=== PATIENT | female | born 1995 | race Caucasian/White ===

== ENCOUNTER 2025-02-19 12:14 | Emergency (ER) | payer BC, SELFPAY ==
[2025-02-19 12:18] VITALS: BP 148/84
[2025-02-19 12:35] LABS: % Basophils 0.3 % (0-2); % Eosinophils 0.6 % (0-6); % Immature Granulocytes 0.4 % (0-0.5); % Lymphocytes 35.2 % (20.5-51.1); % Monocytes 5.7 % (1.7-9.3); % Neutrophils 57.8 % (42.2-75.2); Absolute Eosinophils 0.1 10^3/uL (0-0.7); Absolute Lymphocytes 3.4 10^3/uL (1.2-3.4); Absolute Monocytes 0.6 10^3/uL (0.1-0.6); Absolute Neutrophils 5.6 10^3/uL (1.4-6.5); Hematocrit 41.3 % (37.0-47.0); Hemoglobin 14.1 g/dL (12.0-16.0); Mean Corp Hgb Conc. 34.1 g/dL (33.0-37.0); Mean Corpuscular Volume 87.9 fL (81.0-99.0); Mean Platelet Volume 8.8 fL (7.4-10.4); Nucleated Red Blood Cells % 0 %; Platelet Count 326 10^3/uL (130-400); Red Cell Dist. Width 12.4 % (11.5-14.5); White Blood Cell Count 9.6 10^3/uL (4.8-10.8)
[2025-02-19 12:49] LABS: ALT (SGPT) 22 U/L (0-35); AST (SGOT) 24 U/L (14-36); Albumin 4.2 g/dl (3.5-5.0); Alkaline Phosphatase 43 U/L (38-126); Blood Urea Nitrogen 16 mg/dl (7-17); Calcium 9.9 mg/dl (8.4-10.2); Carbon Dioxide 24 mmol/L (22-30); Chloride 105 mmol/L (98-107); Glucose 101 mg/dl (70-99); Potassium 4.3 mmol/L (3.5-5.1); Sodium 137 mmol/L (135-145); Total Bilirubin 0.9 mg/dl (0.2-1.3); Total Protein 7.2 g/dl (6.3-8.2); eGFR > 60.00
[2025-02-19 12:59] LABS: Troponin I < 0.012 ng/ml
--- NOTE | 2025-02-19 14:36 | ED.GENMED ---
History of Present Illness
General
Chief Complaint: Chest Pain
Source: patient
Exam Limitations: none
Time Seen by Provider: 02/19/25 14:21
History of Present Illness
History of Present Illness:
29yoF with a family history of coronary artery disease presenting for evaluation of chest pain. Symptoms began around 10:30 AM this morning. She drank a cup of coffee about 30 minutes prior to her symptoms beginning. She developed an intense pain
in the left side of her chest. She also had some discomfort in her left shoulder area. Pain seems to be worse with deep breathing and standing up straight. Pain seems somewhat improved but is still present. She is otherwise asymptomatic and
denies any shortness of breath, dizziness, syncope, nausea, calf pain. She called her rubber stamp die inspector and was told to go to the ED for evaluation. Her father in his early 60s from heart disease and both her grandfather and
great-grandfather were diagnosed with heart disease in their 30s. She takes an oral contraceptive pill.
Phy Exam
General Physical Exam
General Presentation: well appearing and no apparent distress
General age: appears stated age
General Skin: warm and dry
General Habitus: normal
General Mental: alert
ENT Exam
ENT Exam: normocephalic
Cardiovascular Exam
Cardiovascular Exam: regular rate/rhythm, no edema, no murmur and normal peripheral pulses (2+ radial and DP pulses bilaterally)
Pulmonary Exam
Pulmonary Exam: lungs clear, no respiratory distress, no rales, no crackles, no rhonchi and no wheezing
Neurological Exam
Neurological Exam: alert
[place] Coma Scale
Eye Opening: Spontaneous
Verbal Response: Oriented
Motor Response: Obeys Commands
GCS Total Score: 15
Skin Exam
Skin Exam: normal color and warm/dry
Psychiatric Exam
Psychiatric Exam: normal mood/affect
Scores
Heart Score for Chest Pain Patients
STEMI patient?: No
History: Slightly or Non-Suspicious
ECG: Normal
Age: </= 45 years
Risk Factors: 1 or 2 Risk Factors
Troponin: </= Normal Limit
Heart Score for Chest Pain Patients: 1
Heart Score Risk: 2.5% MACE over next 6 weeks
Course
Orders/Labs/Results
Orders:
Orders
02/19/25 12:15
Electrocardiogram (*1) Urgent
Reason for Study: Chest Pain
02/19/25 12:16
EKG- Treatment ONCE
02/19/25 12:25
Complete Blood Count/With Diff Urgent
Comprehensive Metabolic Panel Urgent
HCG, Serum Qualitative Screen Urgent
Comment: ADD ON
Troponin I Urgent
02/19/25 14:35
Electrocardiogram (*1) Urgent
Reason for Study: Chest Pain
Cardiac Monitoring- Treatment ONCE
EKG- Treatment ONCE
02/19/25 14:36
Add On- LAB Urgent
Tests Added?: HCG qual
02/19/25 15:00
D-Dimer Urgent
Troponin I Urgent
02/19/25 15:59
CR Chest - 2 Views Urgent
Comment:
Reason For Exam: CP
Abnormal Lab Results
02/19/25
12:25
Glucose 101 H mg/dl
(70-99)
02/19/25 12:25
02/19/25 12:25
Vital Signs
Initial and Last Documented VS:
Initial Vital Signs
Temp Pulse Resp BP Pulse Ox
98.3 F 70 16 148/84 100
02/19/25 12:18 02/19/25 12:18 02/19/25 12:18 02/19/25 12:18 02/19/25 12:18
Last Documented Vital Signs
Temp Pulse Resp BP Pulse Ox
98.3 F 60 16 115/78 99
02/19/25 12:18 02/19/25 17:45 02/19/25 16:30 02/19/25 17:45 02/19/25 17:45
MDM/Problems Addressed
Differential Diagnosis Includes:
29yoF here with L chest/shoulder pain that began 30 minutes after drinking coffee. Worse with breathing and position changes. Sent here by her cardiology team. Strong FH of heart disease. She is mildly hypertensive in triage with otherwise stable
vitals. She is well appearing in no distress and exam reassuring. Differential diagnosis includes but is not limited to: musculoskeletal, esophagitis, pneumonia, pneumothorax, PE, less likely ACS given age
Initial ED plan: Cardiac labs and EKG obtained in triage. EKG shows normal sinus rhythm without ischemic changes and troponin within normal limits. No add on D-dimer, repeat troponin/EKG, and CXR vs. CTA chest depending on D-dimer results.
*EKG
Interpreted by ED Provider?: Yes
EKG Intrepretation Date: 02/19/25
Heart Rate: 60
Rate: normal
Rhythm: sinus
Ruth: normal axis
Interval: normal interval
QRS Pattern: normal QRS
Ischemia: no ischemia
*Critical Care Note
Total Time (30-74mins, 75-104mins- exclusive of procedures): Not Applicable
Update Note
Update Note:
D-dimer normal making PE very unlikely. Repeat EKG and troponin unchanged. Chest x-ray added which appears normal per my interpretation. On reassessment, her chest pain has resolved and she has pain in her left trapezius region. Unclear etiology
of symptoms, suspect musculoskeletal. Advised follow-up with PCP and her rubber stamp die inspector. ED return precautions reviewed. Patient in agreement with plan and was discharged in stable condition.
ED Attending Note
-
Portions of this chart may have been created with voice recognition software.� Occasional wrong word or��sound alike� substitutions may have occurred due to the inherent limitations of voice recognition software.
Discharge Plan
Departure
Patient Disposition: Home (Routine Discharge)
Date of Disposition: 02/19/25
Time of Disposition: 17:11
Patient with high blood pressure during this ER visit?: No
Discharge Problem:
Chest pain
Instructions: Chest pain - Discharge instructions
Referrals:
Fina Murphy, DO [Family Provider] -
Activity Restrictions/Additional Instructions:
Please follow-up with your family doctor and rubber stamp die inspector. Return to the ER with any new or worsening symptoms.
Interventions
Interventions:
*Risk Screen - Suicide Last Done: 02/19/25 12:18
*General Assessment Last Done: 02/19/25 12:18
*Neglect/Abuse Screening Last Done: 02/19/25 12:18
*ED COVID-19 Vaccine History Last Done: 02/19/25 12:18
*Nursing Disposition Last Done: 02/19/25 17:45
ED- Cardiac Assessment Last Done: 02/19/25 15:12
Discharge Date and Time
Discharge Date/Time: 02/19/25 17:45
Print Language: KOREAN
[2025-02-19 15:05] VITALS: BP 121/83
[2025-02-19 15:06] LABS: HCG, Serum Qualitative Screen Negative
[2025-02-19 15:46] LABS: Troponin I < 0.012 ng/ml
[2025-02-19 15:53] LABS: D-Dimer < 0.27 ug/mlFEU (0.00-0.50)
[2025-02-19 16:00] VITALS: BP 115/78
[2025-02-19 17:45] VITALS: BP 115/78
== END 2025-02-19 17:45 | disposition home or self-care (01) ==
LOC: EMR 12:14
PROVIDERS: Emergency Medicine; Physician Assistant; EMERGENCY PHYSICIAN Emergency Medicine; FAMILY PHYSICIAN Family Medicine
DX: R07.89 Other chest pain (principal); I25.10 Atherosclerotic heart disease of native coronary artery without angina pectoris
CPT/HCPCS: 99283; 71046; 80053; 84484; 84703; 85025; 85379; 93005